=== PATIENT | male | born 1965 | race Caucasian/White ===

== ENCOUNTER 2024-05-20 07:12 | Day surgery (SDC) | payer BC, SELFPAY ==
[2024-05-20] VITALS (21 sets, daily range): BP systolic 110–189; BP diastolic 67–98; BMI 37.5
[2024-05-20 08:08] LABS: Glucose - Point of Care 136 mg/dl (70-99)
[2024-05-20 08:18] LABS: Hematocrit 39.1 % (39.0-52.0); Hemoglobin 13.5 g/dL (13.0-18.0); Mean Corp Hgb Conc. 34.5 g/dL (33.0-37.0); Mean Corpuscular Hgb 27.8 pg (27.0-31.0); Mean Corpuscular Volume 80.5 fL (80.0-94.0); Mean Platelet Volume 11.8 fL (7.4-10.4); Platelet Count 222 10^3/uL (130-400); Red Blood Cell Count 4.86 10^6/uL (4.70-6.10); White Blood Cell Count 9.8 10^3/uL (4.8-10.8)
[2024-05-20 08:38] LABS: Blood Urea Nitrogen 26 mg/dl (9-20); Carbon Dioxide 25 mmol/L (22-30); Chloride 102 mmol/L (98-107); Estimated Creatinine Clearance 73 ml/min; Glucose 134 mg/dl (70-99); Potassium 3.8 mmol/L (3.5-5.1); Sodium 134 mmol/L (135-145); eGFR 53.96
[2024-05-20 09:23] LABS: ACT-LR - POC 195 Seconds (116-155)
[2024-05-20 09:33] LABS: ACT-LR - POC 216 Seconds (116-155)
[2024-05-20 09:50] LABS: ACT-LR - POC 236 Seconds (116-155)
[2024-05-20 10:33] LABS: Glucose - Point of Care 147 mg/dl (70-99)
[2024-05-20] MEDS: NSS 1000 IV ×2 (11:13→11:22)
--- NOTE | 2024-05-20 11:30 | ITS.CL.ANGIO ---
Hardness Tester - Angioplasty
Angioplasty
Procedure Report:
LEFT HEART CATHETERIZATION
Date of Procedure: May 20, 2024
Procedures performed:
1: Coronary angiography
2: Left ventricular hemodynamic assessment
3: Saphenous vein bypass graft angiography
4: percutaneous coronary intervention of the left anterior descending artery with placement of a 3.0 x 23 mm Xience drug-eluting stent
Primary Care Physician: Dr. Paul Peacock
Primary Customer Service Specialist: Dr. Lucio Davis
INDICATION: The patient is a 58-year-old male with a past medical history significant for complex coronary artery disease status post multiple prior [place] coronary artery stents in right, circumflex and left anterior descending arteries, status
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
crescendo angina.
ACCESS: The patient was prepped and draped in usual sterile fashion. A 6 Spanish sheath was placed in the right radial artery using the Seldinger over the wire technique.
HEMODYNAMIC FINDINGS (mmHg):
LV(s/d,EDP): 150/4, 15
Ao(s/d,m): 150/76, 105
ANGIOGRAPHIC FINDINGS:
Single-plane Left Ventriculography in [place] Projection: Not done due to contrast load concern.
Coronary Angiography:
Dominance: Right
Left Main: Short, widely patent
Left Anterior Descending: The left anterior descending artery is a medium caliber vessel gives rise to 1 major diagonal branch. The proximal LAD and major diagonal branch are widely patent with only mild luminal irregularities. There are 3
overlapping long stents in the mid to distal LAD. There is severe focal in-stent restenosis in the midportion with a resting CHELSEY II flow distal in the apical LAD.
Left Circumflex: The left circumflex gives rise to 3 major obtuse marginal branches. The first and third vessels are widely patent. The second obtuse marginal branch is patent but has competitive flow from the vein graft. This appears unchanged
from prior angiography in 2019.
Right Coronary: The right coronary artery is a large-caliber dominant vessel that gives rise to a medium caliber posterior descending artery. The previously placed stents in the proximal and mid RCA are widely patent with diffuse 30% in-stent
restenosis. There is slight progression of the restenosis at the most distal stent with 50 to 60% smooth disease when compared to prior angiography in 2019. There is normal flow in the posterior descending artery. The PLV branch is known to be
chronically occluded.
HANCOCK to LAD: Not visualized. Known to be functionally occluded from prior angiography.
SVG to OM sequential to PLV: Widely patent normal distal flow in all grafted vessels.
Percutaneous Coronary Intervention (PCI): In light above angiographic findings and the patient's new crescendo angina, I elected to proceed with a PCI of the LAD. The patient was pretreated with aspirin and ticagrelor. Unfractionated heparin was
given. A 6 Spanish XB 3.5 guiding catheter was used to engage the left main. Hi-Torque floppy wire was easily advanced across the occlusion. A 6 Spanish Guideliner was used for support as well as selective imaging of the LAD with less contrast
required. Predilation with a 2.0 mm balloon restored normal CHELSEY-3 distal flow. Next a 3.0 x 23 mm Xience was deployed at 16 miracle for 60 seconds. Follow-up angiography revealed an outstanding result.
FINAL RESULT: 0% in-stent residual stenosis with an excellent angiographic result and normal CHELSEY-3 flow in all vessels.
Fluoroscopy Time (min): 9.0
Radiation Dose (mGy): 1230
DAP (Gy.cm2): 79
Closure device: None. A TR band was applied for hemostasis at the right wrist.
Complications: None.
ASSESSMENT:
1: Successful PCI of the LAD with placement of a drug-eluting stent for in-stent restenosis.
2: Unchanged residual anatomy as compared to 2019 with a widely patent vein graft.
CONCLUSIONS and RECOMMENDATIONS:
1: Routine post PCI and post drug-eluting stent medical therapy and monitoring. Will plan for same-day discharge if remains clinically stable over the neck several hours.
2: Aggressive medical therapy for coronary artery disease, diabetes, hypertension, and hyperlipidemia with clinical follow-up as scheduled.
3: Will repeat echocardiography to confirm no new LV dysfunction.
Jose Traore M.D.
Copy to: Dr. Paul Singh
[2024-05-20] MEDS: ALDACTONE 25 MG PO (12:19)
[2024-05-20 12:25] LABS: Glucose - Point of Care 198 mg/dl (70-99)
--- NOTE | 2024-05-20 12:40 | PTCARENOTE ---
Patient blood glucose is 198 at 1213. Patient states that he would like to refuse and take his own insulin when he gets home. Patient states that he brought his own insulin with him to the hospital, but wishes no to do that at this point in the
day
--- NOTE | 2024-05-20 13:29 | PTCARENOTE ---
cardiac rehab into speak with patient and patients
--- NOTE | 2024-05-20 14:02 | W.PN.UPDATE ---
Update Note
Progress Note Update
Pt seen post LAD PCI. Right radial cath site without ht/bleeding, non tender. Post EKG NSR 60s, anterior TW abn as before, no acute changes. Pt will remain on dapt w/asa, brilinta as before. Cardiac rehab consulted. Followup with Dr. Davis as
scheduled. Home later today if cath site/tele remain stable.
[2024-05-20 14:15] LABS: ACT-LR - POC > 397 Seconds (116-155)
== END 2024-05-20 15:04 | disposition home or self-care (01) ==
LOC: CATH 07:12
PROVIDERS: ATTENDING PHYSICIAN Internal Medicine Interventional Cardiology; OTHER PHYSICIAN Internal Medicine Cardiovascular Disease; PRIMARYCARE PHYSICIAN Family Medicine
DX: I25.110 Atherosclerotic heart disease of native coronary artery with unstable angina pectoris (principal); Z95.5 Presence of coronary angioplasty implant and graft; Z95.1 Presence of aortocoronary bypass graft; E11.9 Type 2 diabetes mellitus without complications; F11.20 Opioid dependence, uncomplicated; E78.5 Hyperlipidemia, unspecified; I10 Essential (primary) hypertension; R94.31 Abnormal electrocardiogram [ECG] [EKG]; Z79.82 Long term (current) use of aspirin; Z79.4 Long term (current) use of insulin; Z79.02 Long term (current) use of antithrombotics/antiplatelets
CPT/HCPCS: C1769; C1725; C1894; C1887; 80048; 82962; 85027; 85347; 93005; 93459; C1874; C9600; Q9967